=== PATIENT | male | born 1995 | race Caucasian/White ===

== ENCOUNTER 2018-11-23 19:06 | Emergency (ER) | payer OTHER ==
[~2018-11-23] VITALS: Ht 180.3 cm; Wt 90.7 kg
[2018-11-23 19:11] VITALS: BP 157/74; PULSE 72; RESP 18; Ht 180.3 cm; Wt 90.7 kg
--- NOTE | 2018-11-23 20:27 | ERD ---
ER Documentation Chief Complaint Chief Complaint nasal congestion x 2 months, also c/o cough/sore throat/headache HPI This is a 23-year-old male who presents to the emergency room with complaint of itchy throat, headache, nasal congestion, decreased energy X2 months. History significant for asthma. No weight loss, no night sweats, no unusual bruising or bleeding. Has had hx of seasonal allergies in the past. Works in construction outdoors. ROS All systems reviewed and are negative except as per history of present illness. Medications Home Meds Active Scripts Fluticasone Propionate (Flonase Allergy Relief) 9.9 Ml [place]ell.susp, 1 SPRAY NASAL BID, #1 BOTTLE TO EACH NOSTRIL Prov:CAROLIN RICE NP 11/23/18 Cetirizine Hcl* (Zyrtec*) 10 Mg Capsule, 10 MG PO DAILY, #30 TAB Prov:CAROLIN RICE NP 11/23/18 Albuterol Sulfate* (Proair HFA*) 8.5 Gm Hfa.aer.ad, 2 PUFF INH Q4, #1 INHALER Prov:CAROLIN RICE NP 11/23/18 Allergies Allergies: Coded Allergies: No Known Allergies (Verified Allergy, Mild, 11/23/18) PMhx/Soc History of Surgery: Yes (R lateral mm tear w partial meniscectomy 03/18/14) Anesthesia Reaction: No Hx Neurological Disorder: No Hx Respiratory Disorders: No Hx Cardiac Disorders: No Hx Psychiatric Problems: No Hx Miscellaneous Medical Probl: No Hx Alcohol Use: Yes (occ) Hx Substance Use: No Hx Tobacco Use: No Smoking Status: Never smoker Physical Exam Vitals Vital Signs Date Temp Pulse Resp B/P (MAP) Pulse Ox O2 O2 Flow FiO2 Time Delivery Rate 11/23/18 98.3 72 18 157/74 100 19:11 (101) Physical Exam Const: No acute distress Head: Atraumatic Eyes: Normal Conjunctiva ENT: Normal External Ears, +congested nose, nasal mucosa pale, phyarynx pink, no lesions, exudte, petechiae. Neck: Full range of motion. No meningismus. Resp: +inspiratory wheeze to RLL and ANASTASIIA Cardio: Regular rate and rhythm, no murmurs Abd: Soft, non tender, non distended. Normal bowel sounds Skin: No petechiae or rashes Back: No midline or flank tenderness Ext: No cyanosis, or edema Neur: Awake and alert Psych: Normal Mood and Affect Procedures/MDM This is a 23-year-old male who presents to the emergency room with complaint of itchy throat, headache, nasal congestion, decreased energy X2 months. Based on physical exam and discussion with patient regarding his environmental exposures and hx of atopy, the patient appears to be experiencing an allergic response to environmental exposure. Very low suspicion for infection, malignancy, or viral syndrome. Long discussion was had with patient regarding avoiding triggers and use of antihistamine and nasal steroids. Patient was encouraged to establish care with PMD for further evaluation and monitoring of the POC from today. Patient was instructed on red flags and reasons to seek emergent medical treatment. Departure Diagnosis: Primary Impression: Allergic rhinitis Condition: Stable Patient Instructions: Allergic Rhinitis Referrals: [facility] Additional Instructions: Thank you very much for allowing us to participate in your care. Your health and safety is our top priority at [facility]. Call your primary care doctor TOMORROW for an appointment during the next 2-4 days and bring all the information and medications prescribed. Have prescriptions filled and follow precisely the directions on the label. If the symptoms get worse and your provider is unavailable, return to the Emerg ency Department immediately. FOLLOW-UP WITH YOUR PRIMARY CARE PROVIDER FOR FURTHER EVALUATION OF YOUR ALLERGY AND ASTHMA SYMPTOMS. CAROLIN RICE NP Nov 23, 2018 20:26
[2018-11-23] MEDS ORDERED: FLUT9.9S NASAL (20:28)
[2018-11-23] MEDS ORDERED: ALBU8.5H8 INH (20:28)
[2018-11-23] MEDS ORDERED: CETI10CA PO (20:28)
== END 2018-11-23 20:39 | disposition home or self-care (01) ==
LOC: FTE 19:06
DX: J30.9 Allergic rhinitis, unspecified (principal)
CPT/HCPCS: 99283